=== PATIENT | male | born 1975 | race Caucasian/White ===

== ENCOUNTER 2020-02-27 04:02 | Emergency (ER) | payer OTHER, SELFPAY ==
[2020-02-27 04:07] VITALS: BP 160/105; PULSE 83; RESP 20; TEMP 36.4; O2SAT 95
--- NOTE | 2020-02-27 04:16 | ED.GENADUL_ITS ---
Discharge Plan Disposition Patient Disposition: HOME Condition: Good Discharge Details Clinical Impression: Pain, dental, Otitis media Primary Care Provider: Theron Timmons ED Provider: Kelechi Matos Home Meds and New Rx's Prescriptions: New amoxicillin-pot clavulanate [Augmentin] 875-125 mg tablet 1 tab PO BID Qty: 20 RF: 0 Continued escitalopram oxalate [Lexapro] 20 mg tablet 20 mg PO DAILY RF: 0 lansoprazole [Prevacid] 15 MG capsule,delayed release(DR/EC) 15 mg PO DAILY Qty: 60 RF: 0 Zyrtec 10 MG capsule 10 mg PO DAILY RF: 0 methylphenidate HCl [Concerta] 36 mg tablet extended release 24hr 36 mg PO QAM MDD 36mg Qty: 30 RF: 0 albuterol sulfate 8.5 GM HFA aerosol inhaler 2 puff Inhalation PRN PRNRF: 0 diphenhydramine HCl 50 MG capsule 50 mg PO QID PRN PRNRF: 0 Discharge Instructions Instructions: Ear Infection (ED), Toothache (ED) Additional Instructions: At this time you both have an unfortunate double case of a right-sided ear infection and mild dental infection. Please take the antibiotic to take care of both. Please take 1000 mg of Tylenol every 6 hours and 800 mg of ibuprofen radha ry 6 hours to help with the pain. Please follow-up closely with your dentist. If you notice any worsening of your symptoms, or any new symptoms such as vomiting, diarrhea, fever, chills, shortness of breath, chest pain, numbness, weakness, or fainting , please return immediately to the emergency department for reevaluation. Please follow up with your primary care provider as soon as possible for reassessment and reevaluation. As always, it was a pleasure participating in your medical care today. Referrals: Theron Timmons, DO [Primary Care Provider] - Medical Decision Making 44-year-old male presents today for evaluation of right upper dental pain and right ear pain. The patient states that for the last few days he has been suffering from mild right upper dental pain, he thought that his tooth and it broke off a few days ago. It is since been having pain. He has not been taking any Tylenol or Motrin as he just moved into a new apartment and all stores are currently closed. He admits to right ear pain, and decreased hearing from the right ear. He denies any discharge. No fever or chills. No other complaints at this time. Exam demonstrates mild right sided otitis media, as well as mild dental fracture, no donnie-apical abscess. Dental block was performed, complete cessation of pain from the tooth. Will give Toradol and Tylenol here, start him on Augmentin for both ear infection and the tooth pain, give a dental sheet for referral. I have extensively reviewed the treatment plan and discharge instructions with the patient. I have addressed all patient concerns at this time. The patient was made aware of what symptoms to monitor for that would warrant a return to the emergency department. Discussed the plan with the patient, they demonstrate verbal understanding and agreement with our assessment and plan at this time. Time out was taken to identify the correct patient, procedure, and site. Risks and benefits were discussed with the patient and consent was obtained. Direct pressure was held over the area prior to the procedure to reduce painful injection. 5 cc?s of Bupivacaine 0.25% was instilled into the right upper alveolar space with a 27 gauge needle.Complete analgesia was obtained. The patient tolerated the procedure. There were no complications. HPI General Date/Time Provider Initiated Documentation: 02/27/20 04:03 . HPI Narrative: 44-year-old male presents today for evaluation of right upper dental pain and right ear pain. The patient states that for the last few days he has been suffering from mild right upper dental pain, he thought that his tooth and it broke off a few days ago. It is since been having pain. He has not been taking any Tylenol or Motrin as he just moved into a new apartment and all stores are currently closed. He admits to right ear pain, and decreased hearing from the right ear. He denies any discharge. No fever or chills. No other complaints at this time. Related Data Home Medications Medication Instructions Recorded Confirmed albuterol sulfate 2 puff INHALATION PRN PRN 11/24/13 10/11/17 lansoprazole [Prevacid] 15 mg PO DAILY #60 tab-cap 08/23/17 diphenhydramine HCl 50 mg PO QID PRN PRN 10/11/17 10/11/17 Zyrtec 10 mg PO DAILY 10/14/17 methylphenidate HCl 36 mg 36 mg PO QAM #30 tab MDD 36mg 01/30/19 tablet,extended release 24 hr escitalopram oxalate 20 mg tablet 20 mg PO DAILY 02/03/19 02/03/19 amoxicillin-pot clavulanate 1 tab PO BID #20 tab 02/27/20 [Augmentin] Previous Rx's Medication Instructions Recorded lansoprazole [Prevacid] 15 mg PO DAILY #60 tab-cap 08/23/17 methylphenidate HCl 36 mg 36 mg PO QAM #30 tab MDD 36mg 01/30/19 tablet,extended release 24 hr amoxicillin-pot clavulanate 1 tab PO BID #20 tab 02/27/20 [Augmentin] Allergies Allergy/AdvReac Type Severity Reaction Status Date / Time omeprazole Allergy Intermediate possible Verified 02/03/19 07:25 reaction. Hives ranitidine AdvReac Intermediate headache Verified 02/03/19 07:25 General Stated Complaint: EarProblem LUCIE: 4 Review of Systems All systems reviewed & are unremarkable except as noted in HPI and below PFSH Medical History ADD (attention deficit disorder) Family History Mother Diabetes Father Personal history of malignant neoplasm THROAT Social History Smoking/Tobacco Use Status: Never Alcohol Intake: never Drug use: Never Do you feel safe at home: Yes Do you feel safe in your relationship?: Yes Exam Narrative Exam Narrative: 1.Const: Well-nourished, Well-developed, appearing stated age 2.Eyes: PERRL, no conjunctival injection, and symmetrical lids. 3.ENT: Atraumatic external nose and ears. Moist MM. Neck: Symmetric, trachea midline, No thyromegaly. Right-sided otitis media, with mild effusion, notable erythema, mild bulging. Right upper posterior molar is fractured secondary to an old cavity site. No active bleeding. No periapical abscess that I can pal mitchell, no fluctuance. 4.CVS: +S1/S2, No murmurs or gallops. Peripheral pulses 2+ and equal in all extremities. Brisk capillary refill in all extremities. 5.RESP: Unlabored respiratory effort. Clear to auscultation bilaterally. No wheezes rales or rhonchi 6.GI: Soft, Nontender/Nondistended, No hepatosplenomegaly. No guarding or rebound. 7.MSK: Normocephalic/Atraumatic, Extremities w/o deformity or ttp No cyanosis or clubbing, Normal movement of all extremities 8.Skin: Warm, Dry. No rashes or lesions. 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 Sensation grossly intact, no focal neurologic deficits. 10.Psych: (AAO) x3. Appropriate mood and affect Course Vital Signs Vital signs: Vital Signs Temperature 36.4 C L 02/27/20 04:07 Pulse 83 02/27/20 04:07 Respiratory Rate 20 02/27/20 04:07 Blood Pressure 160/105 H 02/27/20 04:07 Pulse Oximetry 95 02/27/20 04:07 Temperature 36.4 C L 02/27/20 04:07 Temperature Source Tympanic 02/27/20 04:07 Pulse 83 02/27/20 04:07 Respiratory Rate 20 02/27/20 04:07 Respiratory Effort 02/27/20 04:10 Blood Pressure 160/105 H 02/27/20 04:07 Pulse Oximetry 95 02/27/20 04:07 Oxygen Delivery Method Room Air 02/27/20 04:07 Oxygen Flow Rate 0 02/27/20 04:07 Pain Level 8 02/27/20 04:10 Procedures Nerve Block Nerve Block 1: Time out performed: Yes Local Anesthetic: Bupivicaine 0.25% Amount of anesthesia used (mL): 5 Side: right Nerve Blocks: other (Dental) Intraoral Nerve Block: superior alveolar Procedure Successful: Yes Patient Tolerated Procedure: well Complications: none
[2020-02-27] MEDS: Acetaminophen 500 MG TAB (04:17)
[2020-02-27] MEDS: Amox. 875/Clav. 125, 2 TABS/BTL 2 TAB (04:18)
[2020-02-27] MEDS: Bupivacaine 0.5% Pres-Free 30 ML VIAL (04:19)
[2020-02-27] MEDS: Ketorolac 30 MG/ML VIAL (04:19)
== END 2020-02-27 04:25 | disposition home or self-care (01) ==
LOC: ER 04:31
PROVIDERS: Emergency Provider Student in an Organized Health Care Education/Training Program; PCP Emergency Medicine
DX: R68.84 Jaw pain (principal); H66.91 Otitis media, unspecified, right ear; K04.7 Periapical abscess without sinus
CPT/HCPCS: 64450; 96372; 99282; 99281; J1885